=== PATIENT | male | born 1935 | race Caucasian/White ===

== ENCOUNTER 2019-07-26 09:41 | Emergency (ER) | payer MEDICARE ==
[2019-07-26] MEDS ORDERED: TENECTEPLASE INJ 50 MG KIT IV ONE ×2 (09:53→10:00)
[2019-07-26] MEDS ORDERED: ASPIRIN 325 MG TABLET PO ONE (09:54)
[2019-07-26] MEDS ORDERED: ASPIRIN 81 MG TABLET, CHEWABLE ONE (09:55)
[2019-07-26] MEDS: NITROGLYCERIN 0.4 MG/TAB 25 TAB/BOTTLE SL PRN ×2 (09:58→10:12)
--- NOTE | 2019-07-26 10:08 | ER Document Report ---
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 Has been constant and severe similar to past LA. I was called to the room to see the patient immediately on arrival. He does not have any history here and had a CABG at [facility] in [place] years ago Past Medical History - Social History Smoking Status: Never Smoker Family History: None Review of Systems - Review of Systems Notes: REVIEW OF SYSTEMS : PHYSICAL EXAMINATION General: Grabbing chest appears ill Head: Atraumatic, normocephalic ENT: Mouth normal, oropharynx moist, no exudates or tonsillar enlargement Eyes: Conjunctiva normal, pupils equal, lids normal Neck: No JVD, supple, no guarding CVS: Normal rate, regular rhythm, no murmurs Resp: No resp distress, equal and normal breath sounds bilaterally GI: Nondistended, soft, no tenderness to palpation, no rebound or guarding Ext: No deformities, no edema, normal range of motion in upper and lower ext Back: No CVA or midline TTP Skin: No rash, warm Lymphatic: No lymphadeopathy noted Neuro: Awake, alert. Face symmetric. GCS 15. -: Yes ROS unobtainable due to patient's medical condition Course - Re-evaluation Re-evalutation: 07/26/19 10:34 Acute chest pain in a patient with history of LA looks ill EKG showing 1lead STEMI B[facility] aspirin[facility]lytic[facility] Air service is grounded. Agrees with TNKase, 3000 heparin bolus followed by 1000 drip Pain better with nitrostarting nitro drip okay with Dr. Christensen. Evaluated at 10:30 AM, pain better stable for transfer to [facility] for [facility] - Laboratory Result Diagrams: 07/26/19 09:56 07/26/19 09:56 Laboratory results interpreted by me: 07/26/19 09:56 Sodium 136.4 L Chloride 96 L Glucose 236 H Calcium 10.5 H - Diagnostic Test Radiology reviewed: Image reviewed, Reports reviewed - EKG Interpretation by Ar EKG shows normal: Sinus rhythm Rate: Normal Rhythm: NSR - The elevation V2, possible depression inferior leads2 worsening ST elevation convex in V2 with similar appearance to the other leads Critical Care Note - Critical Care Note Total time excluding time spent on procedures (mins): 40 Comments: The above patient is critically ill. Not including procedures, but including direct re-evaluations, speaking with patient and/or consultants, interpreting results, and documenting, I spent the total amount of minute listed listed above on critical care time Discharge - Discharge Clinical Impression: ST elevation myocardial infarction (STEMI) Qualifiers: Involved coronary artery: LAD coronary artery Qualified Code(s): I21.02 - ST elevation (STEMI) myocardial infarction involving left anterior descending coronary artery Condition: Critical Disposition: [facility]
[2019-07-26] MEDS ORDERED: NITROGLYCERIN/D5W 50 MG/250 ML RTUINJ IV ONE (10:17)
[2019-07-26] MEDS ORDERED: HEPARIN SODIUM,PORCINE/D5W 25,000 UNIT/250 ML RTUINJ IV PRN (10:17)
[2019-07-26] MEDS ORDERED: HEPARIN SOD (PORCINE) 1,000 UNIT/ML 10 ML VIAL IV ONE (10:17)
[2019-07-26] MEDS ORDERED: HEPARIN SODIUM,PORCINE/D5W 25,000 UNIT/250 ML RTUINJ IV ONE (10:21)
[2019-07-26 10:28] LABS: ANION GAP 15 (5-19); BLOOD UREA NITROGEN 20 mg/dL (7-20); CALCIUM 10.5 mg/dL (8.4-10.2); CARBON DIOXIDE 25 mmol/L (22-30); CHLORIDE 96 mmol/L (98-107); GLUCOSE 236 mg/dL (75-110); POTASSIUM 4.8 mmol/L (3.6-5.0)
[2019-07-26 10:30] LABS: ABSOLUTE BASOPHILS # (AUTO) 0.1 10^3/uL (0.0-0.2); ABSOLUTE EOSINOPHILS # (AUTO) 0.2 10^3/uL (0.0-0.6); ABSOLUTE LYMPHOCYTES (AUTO) 2.6 10^3/uL (0.5-4.7); ABSOLUTE MONOCYTES (AUTO) 0.8 10^3/uL (0.1-1.4); ABSOLUTE NEUT (AUTO) 5.5 10^3/uL (1.7-8.2); BASOPHILS % (AUTO) 0.9 % (0-2); EOSINOPHILS % (AUTO) 2.4 % (0-6); HEMATOCRIT 46.4 % (37.9-51.0); HEMOGLOBIN 15.6 g/dL (13.5-17.0); LYMPHOCYTES % (AUTO) 28.5 % (13-45); MEAN CORPUSCULAR HEMOGLOBIN 30.3 pg (27.0-33.4); MEAN CORPUSCULAR HGB CONC 33.6 g/dL (32.0-36.0); MEAN CORPUSCULAR VOLUME 90 fl (80-97); RED BLOOD COUNT 5.14 10^6/uL (4.35-5.55); RED CELL DISTRIBUTION WIDTH 13.5 % (11.5-14.0); SEGMENTED NEUTROPHILS % (AUTO) 59.2 % (42-78); TOTAL CELLS COUNTED % (AUTO) 100 %; WHITE BLOOD COUNT 9.2 10^3/uL (4.0-10.5)
[2019-07-26] MEDS ORDERED: HEPARIN SOD (PORCINE) 1,000 UNIT/ML 10 ML VIAL IV PRN (10:30)
[2019-07-26 10:41] LABS: PLATELET COUNT 289 10^3/uL (150-450)
--- NOTE | 2019-07-26 10:45 | RADIOLOGY REPORT (SQ) ---
EXAM DESCRIPTION: CHEST SINGLE VIEW COMPLETED DATE/TIME: 07/26/2019 10:13 am REASON FOR STUDY: CP COMPARISON: None. EXAM PARAMETERS: NUMBER OF VIEWS: One view. TECHNIQUE: Single frontal radiographic view of the chest acquired. RADIATION DOSE: NA LIMITATIONS: None. FINDINGS: LUNGS AND PLEURA: No opacities, masses or pneumothorax. No pleural effusion. MEDIASTINUM AND HILAR STRUCTURES: No masses. Contour normal. HEART AND VASCULAR STRUCTURES: Heart normal in size. Normal vasculature. BONES: No acute findings. HARDWARE: CABG. OTHER: No other significant finding. IMPRESSION: NO ACUTE RADIOGRAPHIC FINDING IN THE CHEST. TECHNICAL DOCUMENTATION: JOB ID: [id number] 2010 [employer]- All Rights Reserved Reading location - IP/workstation name: [email or web address]
[2019-07-26 11:11] VITALS: BP 137/98
--- NOTE | 2019-07-26 21:22 | EKG REPORT ---
SEVERITY:- ABNORMAL ECG - SINUS TACHYCARDIA PAIRED VENTRICULAR PREMATURE COMPLEXES FIRST DEGREE AV BLOCK ABNORMAL T, PROBABLE ISCHEMIA, INFERIOR LEADS MINIMAL ST ELEVATION, ANTEROLATERAL LEADS : Confirmed by: Jillian Peck 26-Jul-2019 21:21:36
== END 2019-07-26 10:45 | disposition short-term general hospital (02) ==
LOC: ER 09:41
DX: I21.02 ST elevation (STEMI) myocardial infarction involving left anterior descending coronary artery (principal); Z95.1 Presence of aortocoronary bypass graft
CPT/HCPCS: 93005; 36415; 85025; 80048; 84484; 71045; 93010; J3101; J1644 ×2; A9270 ×2; J3490

== ENCOUNTER → 2020-06-13 | Outpatient (CLI) | payer MEDICARE ==
[~2020-06-13] MED LIST: COVID-19 VACCINE (PFIZER)/PF 30 MCG/0.3 ML VIAL IM ONE; EPINEPHRINE INJ/PF 1 MG/1 ML AMPULE IM PRN
== END ==
LOC: EMPHEALTH 11:37
PROVIDERS: ATTEND Internal Medicine
DX: Z23 Encounter for immunization (principal)
CPT/HCPCS: 91300

== ENCOUNTER → 2020-07-04 | Outpatient (CLI) | payer MEDICARE | LOC: EMPHEALTH 11:36 | PROVIDERS: ATTEND Internal Medicine | DX: Z23 Encounter for immunization (principal) | CPT/HCPCS: 91300 ==